=== PATIENT | male | born 1985 | race Caucasian/White ===

== ENCOUNTER 2018-11-20 17:54 | Emergency (ER) | payer OTHER ==
[~2018-11-20] VITALS: Ht 170.2 cm; Wt 87.5 kg
[2018-11-20 18:01] VITALS: BP 114/62
[2018-11-20] MEDS ORDERED: KETOROLAC TROMETH 60MG/2ML VIAL IM ONE (19:15)
== END 2018-11-20 20:14 | disposition home or self-care (01) ==
LOC: ER 18:06
DX: S92.405A Nondisplaced unspecified fracture of left great toe, initial encounter for closed fracture (principal); S90.212A Contusion of left great toe with damage to nail, initial encounter; Z87.891 Personal history of nicotine dependence; W20.8XXA Other cause of strike by thrown, projected or falling object, initial encounter; Y93.89 Activity, other specified; Y92.89 Other specified places as the place of occurrence of the external cause; Y99.8 Other external cause status
CPT/HCPCS: 73660; 96372; 99283; J1885; L3260

== ENCOUNTER 2018-12-04 09:58 | Emergency (ER) | payer OTHER ==
[~2018-12-04] VITALS: Ht 170.2 cm; Wt 86.2 kg
[2018-12-04 10:06] VITALS: BP 147/81
[2018-12-04] MEDS ORDERED: cefTRIAXone SOD 1,000 MG VL IM ONE (10:45)
== END 2018-12-04 11:10 | disposition home or self-care (01) ==
LOC: ER 09:58
DX: L03.032 Cellulitis of left toe (principal); Z87.891 Personal history of nicotine dependence
CPT/HCPCS: 96372; 99283; J0696

== ENCOUNTER 2022-02-06 18:11 | Emergency (ER) | payer OTHER ==
[~2022-02-06] VITALS: Ht 170.2 cm; Wt 90.7 kg
[2022-02-06 22:36] VITALS: BP 113/71
== END 2022-02-06 22:50 | disposition home or self-care (01) ==
LOC: ER 18:12
DX: M25.562 Pain in left knee (principal); X58.XXXA Exposure to other specified factors, initial encounter; Y93.89 Activity, other specified; Y92.89 Other specified places as the place of occurrence of the external cause; Y99.8 Other external cause status

== ENCOUNTER 2025-09-22 23:44 | Emergency (ER) | payer OTHER ==
[~2025-09-22] VITALS: Ht 170.2 cm; Wt 100.0 kg
[~2025-09-22 23:44] MED LIST: COLC1TAB3 PO; NAP500T PO
--- NOTE | 2025-09-23 00:48 | ED.PDOC ---
History of Present Illness HPI Comments 40-year-old male who came to ER for cough. Patient denies any medical problems. With a states he was asleep earlier. When he woke up and coughed blood, about 2 tablespoonfuls. He felt dizzy and short of breath. Denies any fever. Denies any weight loss. Denies any recent travels REVIEW OF SYSTEMS: General: No fever, no chills, or fatigue HEENT: No sore throat, no earache, no congestion, no neck pain. Cardiac: No chest pain. No palpitations. Lungs: (+) shortness of breath, (+) cough. (+) hemoptysis GI: No nausea, no vomiting, no diarrhea, no constipation, no abdominal pain : No dysuria, frequency, or urgency. No hematuria. Musculoskeletal: No joint pain , no joint swelling, no extremity edema. Skin: No rash, no itching. Neuro: No headache, no dizziness, no weakness PHYSICAL EXAM: General: Awake, alert and oriented. No acute distress. Skin: Skin in warm, dry and intact. Appropriate color for ethnicity. HEENT: The head is normocephalic and atraumatic. Conjunctivae are clear without exudates or hemorrhage. Sclera is non-icteric. Eyelids are normal in appearance without swelling or lesions. Oral mucosa is pink and moist Neck: The neck is supple with normal range of motion. No JVD. Cardiac: Heart rate and rhythm are normal. No murmurs, gallops, or rubs are auscultated. Respiratory: No signs of respiratory distress. Lung sounds are clear in all lobes bilaterally without rales, rhonchi, or wheezes. Abdominal: Abdomen is soft, non-tender without distention, guarding or rigidity. Bowel sounds are present and normoactive in all four quadrants. Extremities: Upper and lower extremities are atraumatic in appearance without deformity or edema. Neurological: The patient is awake, alert and oriented to person, place, and time with normal speech. Speech is clear. There is no facial asymmetry. Psychiatric: Appropriate mood and affect. Good judgement and insight. Chief Complaint: Cough Time Seen by MD: 00:46 Primary Care Provider: JOHANNY Reviewed Notes: Nurses Notes Allergies: Coded Allergies: NO KNOWN ALLERGIES (Unverified , 11/20/18) Home Meds Active Scripts Naproxen (NAPROSYN TABLET) 500 Mg Tb, 1 TAB PO BID, #60 TAB Prov:PRISCA VUONG 02/08/24 Colchicine (Colcrys) 0.6 Mg Tab, 1 TAB PO DAILY PRN, #30 TAB 3 Refills Prov:PRISCA VUONG 02/08/24 Information Source: Patient Mode of Arrival: Ambulatory Severity: Moderate Past Medical History PAST MEDICAL HISTORY: Denies Surgical History: Denies all surgeries Family History Family History: No family hx of Cancer, No family hx of DM Social History Smoker: Quit Less Than 1 Year Alcohol: Denies ETOH Use Drugs: Denies Drug Use Lives In: Home Was a procedure done? Was a procedure done?: No Differential Dx Considerations may include: Anemia, hemoptysis, pneumonia, upper respiratory infection, bronchitis, viral infection, pulmonary embolism, bleeding disorder, other X-Ray, Labs, Meds, VS Vital Signs Date Time Temp Pulse Resp B/P (MAP) Pulse Ox O2 Delivery O2 Flow Rate FiO2 09/23/25 04:44 97.9 92 20 135/86 (102) 97 97.9 09/23/25 04:44 92 20 99 Room Air 09/22/25 23:46 97.3 109 18 130/88 95 97.3 Lab Test 09/23/25 00:43 Range/Units White Blood Count 10.0 4.4-10.8 10^3/uL Red Blood Count 5.32 4.5-5.90 10^6/uL Hemoglobin 16.2 13.5-17.5 g/dL Hematocrit 46.8 41.0-53.0 % Mean Corpuscular Volume 87.9 80.0-100.0 fL Mean Corpuscular Hemoglobin 30.5 28.0-32.0 pg Mean Corpuscular Hemoglobin Concent 34.7 32.0-36.0 g/dL Red Cell Distribution Width 13.9 11.8-14.3 % Platelet Count 370 140-450 10^3/uL Mean Platelet Volume 7.7 6.9-10.8 fL Neutrophils (%) (Auto) 63.5 37.0-80.0 % Lymphocytes (%) (Auto) 26.3 10.0-50.0 % Monocytes (%) (Auto) 7.8 0.0-12.0 % Eosinophils (%) (Auto) 1.6 0.0-7.0 % Basophils (%) (Auto) 0.8 0.0-2.0 % Neutrophils # (Auto) 6.3 1.6-8.6 10 ^3/uL Lymphocytes # (Auto) 2.6 0.4-5.4 10 ^3/uL Monocytes # (Auto) 0.8 0-1.3 10 ^3/uL Eosinophils # (Auto) 0.2 0-0.8 10 ^3/uL Basophils # (Auto) 0.1 0-0.2 10 ^3/uL Nucleated Red Blood Cells 0.1 % Prothrombin Time 10.3 9.3-11.8 sec Prothrombin Time INR 0.97 0.9-1.15 D-Dimer, Quantitative < 0.19 0.0-0.49 mg/L FEU Sodium Level 141 136-145 mmol/L Potassium Level 3.8 3.5-5.1 mmol/L Chloride Level 104 98-107 mmol/L Carbon Dioxide Level 25 20-31 mmol/L Anion Gap 12 5-15 Blood Urea Nitrogen 25 H 9-23 mg/dL Creatinine 0.90 0.700-1.30 mg/dL Glomerular Filtration Rate Calc 111 >90 mL/min BUN/Creatinine Ratio 27.8 H 10.0-20.0 Serum Glucose 120 H 74-106 mg/dL Calcium Level 9.6 8.7-10.4 mg/dL Troponin I High Sensitivity 4 </=54 ng/L Exam: CT CHEST WITHOUT CONTRAST History: Hemoptysis Comparison Study: None TECHNIQUE: Multidetector CT of the chest was performed from lung bases to pubic symphysis. Imaging was performed without IV contrast. Axial, coronal and sagi ttal multiplanar reformats were obtained from the axial data set by the technologist. Radiation optimization: All CT scans at this facility use at least one of these dose optimization techniques: automated exposure control mA and/or kV adjustment per patient size (includes targeted exams where dose is matched to clinical indication) or iterative reconstruction. Radiation Dose Information: CT Dose: CTDI volume is 24.04 mGy. Dose-length product is 833.18 mGy*cm FINDINGS: The airway is patent. Thyroid gland appears unremarkable. No mediastinal or hilar adenopathy. No pericardial or pleural effusion. No focal consolidation, mass, or suspicious nodule. The lungs appear clear. 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 No suspicious osseous lesion. IMPRESSION: 1. No acute findings. EDURE: XY CHEST TWO VIEWS ROUTINE DATE: 09/23/2025 01:30 AM HISTORY: cough, hemoptysis Views: 2 COMPARISON: None FINDINGS/IMPRESSION: Lungs: Minor haziness of the lungs may represent mild infiltrates. No consolidation or effusion is seen. Mediastinum: Mediastinal structures appear unremarkable... Skeletal: The skeletal structures appear unremarkable. Time of 1ST Reevaluation: 00:39 Reevaluation 1ST: Unchanged Patient Education/Counseling: Need For Follow Up Family Education/Counseling: No Family Present SEPSIS Sepsis Screen Date sepsis recognized/suspect: Sep 22, 2025 Time Sepsis recognized/suspect: 8 Recent Procedure: No On Antibiotic Therapy: No Respiratory Rate >20: No Heart Rate >90: No Temp<36 C (96.8 F) or >38.3 C: No SBP <90 or MAP <65 mmHG: No New Acute Mental Status Change: No Is the patient on CPAP, BIPAP,: No Physician Orders Chest Two Views Routine (09/23/25 00:35) Chest Without Contrast (09/23/25 02:14) Vital Signs Date Time Temp Pulse Resp B/P (MAP) Pulse Ox O2 Delivery O2 Flow Rate FiO2 09/23/25 04:44 97.9 92 20 135/86 (102) 97 97.9 09/23/25 04:44 92 20 99 Room Air 09/22/25 23:46 97.3 109 18 130/88 95 97.3 Laboratory Tests Test 09/23/25 00:43 White Blood Count 10.0 10^3/uL (4.4-10.8) Departure 1 Departure Time of Disposition: 04:07 Impression: Primary Impression: Hemoptysis Additional Impressions: Renal cyst Angiolipoma of kidney Disposition: 01 HOME / SELF CARE / HOMELESS Condition: Stable Additional Instructions: ED DISCHARGE INSTRUCTIONS Instructions: Please read all instructions provided in this packet carefully. Follow up with your primary care provider about abnormal findings on your CAT scan. A copy of the CAT scan report is included below, please keep this packet and take it to your next follow up visit. Although you have been discharged from the Emergency Department, this does not mean that you have a "clean bill of health". No definitive diagnosis for your symptoms has been made today. It is possible that you are in the process of developing a serious illness. This is why you must return to the ED without fail if any new or worsening symptoms (especially if your symptoms include chest pain, trouble breathing, abdominal pain, fever, headache, confusion, trouble seeing, or trouble walking) It is also very important that you see a primary care provider (PCP) within the next 1-3 days to follow up. If you are unable to get an appointment, return to the ED for re-evaluation. Coughing Up Blood: Care Instructions Overview Coughing up blood can be frightening. The blood may come from the lungs, stomach, or throat. You may cough up a few thin streaks of bright red blood. This probably is not a cause for concern. Coughing up large amounts of bright red blood or rust-colored mucus from the lungs can be a symptom of a more seriou s condition. Several conditions can make you cough up blood from the lungs. These include bronchitis and pneumonia, or more serious problems such as cancer or a blood clot in the lung (pulmonary embolus). Depending on what is causing your cough, it may go away after the illness is treated. Your doctor may tell you not to suppress the cough with cough medicine if it is better for you to cough up the blood and spit it out. Follow-up care is a yousif part of your treatment and safety. Be sure to make and go to all appointments, and call your doctor if you are having problems. It's also a good idea to know your test results and keep a list of the medicines you take. How can you care for yourself at home? Make a note of when and for how long you cough up blood. Also note if you are coughing up spit with a small amount of blood, or mostly blood. Take this information to your next appointment with your doctor. Drink plenty of water. This helps keep the mucus thin and helps you cough it up. If you have kidney, heart, or liver disease and have to limit fluids, talk with your doctor before you increase your fluid intake. If your doctor prescribed antibiotics, take them as directed. Do not stop taking them just because you feel better. You need to take the full course of antibiotics. Do not take cough medicine without your doctor's guidance. They can cause problems if you have other health problems. They can also interact with other medicine. Do not smoke or use other forms of tobacco, especially while you have a cough. Smoking can make coughing worse. If you need help quitting, talk to your doctor about stop-smoking programs and medicines. These can increase your chances of quitting for good. Avoid exposure to smoke, dust, or other pollutants. When should you call for help? Call 911 anytime you think you may need emergency care. For example, call if: You have sudden chest pain and shortness of breath. You have severe trouble breathing. Call your doctor now or seek immediate medical care if: You have wheezing and difficulty breathing. You are dizzy or lightheaded, or you feel like you may faint. You cough up clots of blood. You have any new symptoms, such as chest pain with difficulty breathing or a fever. Watch closely for changes in your health, and be sure to contact your doctor if: You do not get better as expected. Credits for Coughing Up Blood: Care Instructions Current as of: June 09, 2024 Author: [employer] Staff Clinical Review Board All [employer] education is reviewed by a team that includes physicians, nurses, advanced practitioners, registered dieticians, and other healthcare professionals. PATIENT: SOTO BASHIR ACCT: [id number] UNIT: [id number] : 1985 LOC: ER ROOM / BED: / AGE / SEX: 40 / M ADM STATUS: REG ER SERVICE 0214 PROCEDURE(s): CX2CT - CHEST WITHOUT CONTRAST REASON: Hemoptysis ORDER NUMBER(s): [id number], ACCESSION NUMBER(s): [id number] Exam: CT CHEST WITHOUT CONTRAST History: Hemoptysis Comparison Study: None TECHNIQUE: Multidetector CT of the chest was performed from lung bases to pubic symphysis. Imaging was performed without IV contrast. Axial, coronal and sa gittal multiplanar reformats were obtained from the axial data set by the technologist. Radiation optimization: All CT scans at this facility use at least one of these dose optimization techniques: automated exposure control mA and/or kV adjustment per patient size (includes targeted exams where dose is matched to clinical indication) or iterative reconstruction. Radiation Dose Information: CT Dose: CTDI volume is 24.04 mGy. Dose-length product is 833.18 mGy*cm FINDINGS: The airway is patent. Thyroid gland appears unremarkable. No mediastinal or hilar adenopathy. No pericardial or pleural effusion. No focal consolidation, m ass, or suspicious nodule. The lungs appear clear. 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 No suspicious osseous lesion. IMPRESSION: 1. No acute findings. Comments 40-year-old male with single episode of hemoptysis. Patient's vital signs within normal limits other than mild tachycardia on arrival to the ED. D-dimer is negative. CT chest without contrast shows no acute process . Incidental findings discussed with the patient and he is advised to follow up with his primary care provider for further evaluation Critical Care Note Critical Care Time?: No Stability Stability form required: No Heart Score Heart Score: Heart Score Response (Comments) Value History N/A 0 EKG N/A 0 Age N/A 0 Risk Factors N/A 0 Troponin N/A 0 Total 0 I personally scribed for MOON KHOURY MD ([email or web address]) on 09/23/25 at 00:48. Electronically submitted by Drew Brewer ([employer]). I personally scribed for MOON KHOURY MD ([email or web address]) on 09/23/25 at 03:41. Electronically submitted by Drew Brewer ([employer]). MOON KHOURY MD Sep 23, 2025 00:48
[2025-09-23 01:04] LABS: Chloride 104 mmol/L (98-107); Potassium 3.8 mmol/L (3.5-5.1); Sodium 141 mmol/L (136-145)
[2025-09-23 01:05] LABS: Anion Gap 12 (5-15); Calcium 9.6 mg/dL (8.7-10.4); Carbon Dioxide 25 mmol/L (20-31)
[2025-09-23 01:06] LABS: Hematocrit 46.8 % (41.0-53.0); Hemoglobin 16.2 g/dL (13.5-17.5); Mean Corpuscular Hemoglobin 30.5 pg (28.0-32.0); Mean Corpuscular Volume 87.9 fL (80.0-100.0); Nucleated Red Blood Cells % 0.1 %
[2025-09-23 01:10] LABS: BUN/Creatinine Ratio 27.8 (10.0-20.0)
[2025-09-23 01:19] LABS: Blood Urea Nitrogen 25 mg/dL (9-23); Glucose 120 mg/dL (74-106)
[2025-09-23 01:29] LABS: INR 0.97 (0.9-1.15); Prothrombin Time 10.3 sec (9.3-11.8)
--- NOTE | 2025-09-23 02:02 | DVH ---
MEDICAL RECORDS NUMBER: [id number] PROCEDURE: XY CHEST TWO VIEWS ROUTINE DATE: 09/23/2025 01:30 AM HISTORY: cough, hemoptysis Views: 2 COMPARISON: None FINDINGS/IMPRESSION: Lungs: Minor haziness of the lungs may represent mild infiltrates. No consolidation or effusion is seen. Mediastinum: Mediastinal structures appear unremarkable... Skeletal: The skeletal structures appear unremarkable.
--- NOTE | 2025-09-23 03:19 | DVH ---
Exam: CT CHEST WITHOUT CONTRAST History: Hemoptysis Comparison Study: None TECHNIQUE: Multidetector CT of the chest was performed from lung bases to pubic symphysis. Imaging was performed without IV contrast. Axial, coronal and sagittal multiplanar reformats were obtained from the axial data set by the technologist. Radiation optimization: All CT scans at this facility use at least one of these dose optimization techniques: automated exposure control mA and/or kV adjustment per patient size (includes targeted exams where dose is matched to clinical indication) or iterative reconstruction. Radiation Dose Information: CT Dose: CTDI volume is 24.04 mGy. Dose-length product is 833.18 mGy*cm FINDINGS: The airway is patent. Thyroid gland appears unremarkable. No mediastinal or hilar adenopathy. No pericardial or pleural effusion. No focal consolidation, mass, or suspicious nodule. The lungs appear clear. 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 No suspicious osseous lesion. IMPRESSION: 1. No acute findings.
[2025-09-23 04:44] VITALS: BP 135/86; PULSE 92; RESP 20; TEMP 97.9; O2SAT 99
== END 2025-09-23 05:13 | disposition home or self-care (01) ==
LOC: ER 23:44
DX: N28.1 Cyst of kidney, acquired (principal); R04.2 Hemoptysis; D17.71 Benign lipomatous neoplasm of kidney; Z79.899 Other long term (current) drug therapy; Z87.891 Personal history of nicotine dependence
CPT/HCPCS: 36415; 71046; 71250; 80048; 84484; 85025; 85379; 85610